=== PATIENT | male | born 1935 | race Caucasian/White ===

== ENCOUNTER → 2016-08-24 10:08 | Outpatient (CLI) | payer MEDICARE ==
[2016-08-24 10:40] LABS: BASOPHILS 0.7 % (0-2); EOSINOPHILS 2.6 % (0-7); HEMATOCRIT 42.2 % (42.0-54.0); HEMOGLOBIN 14.9 g/dL (13.5-17.5); LYMPHOCYTES 23.3 % (15-50); MCH 34.5 pg (26.0-34.0); MCHC 35.3 g/dL (31.0-37.0); MCV 97.7 fL (80.0-100.0); MEAN PLATELET VOLUME 10.7 fL (7.4-10.4); MONOCYTES 10.5 % (2-11); NEUTROPHILS 62.9 % (40-80); PLATELET COUNT 145 10x3/uL (130-400); RBC 4.32 10x6/uL (4.20-6.10); WBC 4.6 10x3/uL (4.8-10.8)
[2016-08-24 11:23] LABS: ALBUMIN 3.5 g/dL (3.4-5.0); ALKALINE PHOSPHATASE 91 U/L (46-116); ALT (SGPT) 44 U/L (10-68); CALC OSMOLALITY 276 mosm/kg (275-300); CALCIUM 8.9 mg/dL (8.5-10.1); CARBON DIOXIDE 28.1 mmol/L (21.0-32.0); CHLORIDE - SERUM 103 mmol/L (98-107); CHOL - HDL RATIO 2.3 ratio (2.3-4.9); CHOLESTEROL, TOTAL 128 mg/dL (0-200); GLUCOSE 107 mg/dL (74-106); HDL CHOLESTEROL 56 mg/dL (32-96); LDL CHOLESTEROL 66 mg/dL (0-100); LDL-HDL RATIO 1.2 ratio (1.5-3.5); PROTEIN - SERUM 7.2 g/dL (6.4-8.2); SODIUM 138 mmol/L (136-145); THYROID STIMULATING HORMONE 3.11 uIU/mL (0.36-3.74); TRIGLYCERIDE 33 mg/dL (30-200); UREA NITROGEN 16 mg/dL (7-18); eGFR NON AFRICAN AMERICAN 76 mL/min (90-120)
[2016-08-24 11:42] LABS: SCREENING PSA (YEARLY) 1.78 ng/mL (0.00-4.00)
== END | disposition home or self-care (01) ==
LOC: D.LAB 08:00
PROVIDERS: Family Medicine
DX: Z00.00 Encounter for general adult medical examination without abnormal findings (principal); Z12.5 Encounter for screening for malignant neoplasm of prostate; E78.5 Hyperlipidemia, unspecified; E03.9 Hypothyroidism, unspecified; N40.0 Benign prostatic hyperplasia without lower urinary tract symptoms